=== PATIENT | female | born 1965 | race Caucasian/White ===

== ENCOUNTER 2016-12-08 07:37 | Day surgery (SDC) | payer BC ==
[~2016-12-08] VITALS: Ht 165.1 cm; Wt 62.7 kg
[2016-12-08 07:55] VITALS: BP 104/64; PULSE 70; TEMP 97.7
[2016-12-08] MEDS ORDERED: LYRICA 25MG CAP25 MG PO (08:02)
[2016-12-08] MEDS ORDERED: PROBIOTIC FORMU1 CAP PO (08:02)
[2016-12-08] MEDS ORDERED: ZOLOFT 25MG25 MG PO (08:03)
[2016-12-08] MEDS ORDERED: PRILOSEC10 MG PO (08:04)
[2016-12-08] MEDS ORDERED: ATIVAN 1MG T1 MG/TAB PO (08:04)
[2016-12-08] MEDS ORDERED: ADVIL200 MG PO (08:05)
[2016-12-08 09:00] VITALS: BP 98/53; PULSE 70; TEMP 97.7
[2016-12-08 09:15] VITALS: BP 116/63; PULSE 69
[2016-12-08 09:30] VITALS: BP 111/65; PULSE 69
== END 2016-12-08 09:40 | disposition home or self-care (01) ==
LOC: SDCO 07:37
DX: K29.30 Chronic superficial gastritis without bleeding (principal); K29.60 Other gastritis without bleeding
CPT/HCPCS: OP; J2250; J3010; J7030

== ENCOUNTER → 2018-01-12 | Outpatient (CLI) | payer BC ==
[~2018-01-12] MED LIST: ADVIL200 MG PO; ATIVAN 1MG T1 MG/TAB PO; LYRICA 25MG CAP25 MG PO; PRILOSEC10 MG PO; PROBIOTIC FORMU1 CAP PO; ZOLOFT 25MG25 MG PO
[2018-01-12 08:23] LABS: HEMATOCRIT 42.6 % (37.0-47.0); HEMOGLOBIN 14.4 g/dl (12.5-16.0); MEAN CELL VOLUME 90 fl (80.0-100.0); MEAN CORPUSCULAR HEMOGLOBIN 30 pg (27.0-31.0); MEAN CORPUSCULAR HGB CONC 34 g/dl (33.0-37.0); MEAN PLATELET VOLUME 9.3 fl (7.4-10.4); PLATELET COUNT 258 K/mm3 (130-400); RED BLOOD COUNT 4.76 M/mm3 (4.10-5.30); REDCELL DISTRIBUTION WIDTH-CV 11.9 % (11.5-14.5)
[2018-01-12 08:35] LABS: ALBUMIN 3.9 gm/dL (3.5-5.0); BILIRUBIN,TOTAL 0.4 mg/dL (0.0-1.0); CALCIUM 8.6 mg/dL (8.4-10.2); CREATININE, serum 0.63 mg/dL (0.52-1.25); TOTAL PROTEIN 6.3 gm/dL (6.4-8.2)
== END ==
LOC: COL.RAD 07:26
PROVIDERS: Physician Assistant
DX: K76.0 Fatty (change of) liver, not elsewhere classified (principal); R10.11 Right upper quadrant pain; R19.7 Diarrhea, unspecified

== ENCOUNTER → 2018-01-29 | Outpatient (CLI) | payer BC | LOC: COL.RAD 05:51 | DX: R10.10 Upper abdominal pain, unspecified (principal) | CPT/HCPCS: A9537; J2805 ==

== ENCOUNTER → 2019-04-13 | Outpatient (CLI) | payer OTHER | LOC: MC.RAD 14:23 | DX: Z12.31 Encounter for screening mammogram for malignant neoplasm of breast (principal); N63.11 Unspecified lump in the right breast, upper outer quadrant; Z98.890 Other specified postprocedural states ==

== ENCOUNTER 2019-08-30 07:33 | Day surgery (SDC) | payer OTHER ==
[2019-08-30] VITALS (7 sets, daily range): BP systolic 98–142; BP diastolic 42–88; PULSE 84–95; TEMP 98–98.5
[~2019-08-30] VITALS: Ht 160 cm; Wt 63.6 kg
--- NOTE | 2019-08-30 09:00 | NUR ---
Resting on cart is tearful. States that she has been fighting with her boyfriend. Allowed patient to talk. Does not want boyfriend in the room right now. He has left to get breakfast and has returned.
--- NOTE | 2019-08-30 09:40 | NUR ---
Patient more relaxed and calmer and wishes to have boyfriend in the room now.
--- NOTE | 2019-08-30 10:15 | NUR ---
Patient is requesting something for anxiety and order obtained for Valium 5mg po and given.
[2019-08-30] MEDS ORDERED: COLACE 100100 MG/CAP PO (13:16)
[2019-08-30] MEDS ORDERED: MOTRIN 600600 MG/TAB PO (13:17)
[2019-08-30] MEDS ORDERED: NORCO 325 MG-51 TAB PO (13:17)
[2019-08-30] MEDS ORDERED: Work release (13:21)
--- NOTE | 2019-08-30 13:28 | NUR ---
Patient returns to room 2 per cart and is awake and alert. Incisions x4 on abdomen without bleeding. [place] set dressing dry. Sats 93% on 1L per nasal cannula. Temp 98.5. IV fluids infusing and denies pain or nausea. Siderails up x2 and call light in reach. Friend in room.
--- NOTE | 2019-08-30 13:43 | NUR ---
Sipping on Coke. Denies pain or nausea.
--- NOTE | 2019-08-30 13:58 | NUR ---
Resting and is sipping on Coke.
--- NOTE | 2019-08-30 14:13 | NUR ---
Eating muffin and sipping on water.
--- NOTE | 2019-08-30 14:28 | NUR ---
Tolerating muffin and Coke. Talks with friend.
--- NOTE | 2019-08-30 14:40 | NUR ---
Up to the bathroom and is able to void and returns to room. IV discontinued and allowed patient to dress.
--- NOTE | 2019-08-30 14:52 | NUR ---
Patient given dismissal instructions and voices understanding of these. Provided scripts for [place] and Motrin. Also provided work release. Reinforced need to eat low fat diet for one week.
--- NOTE | 2019-08-30 14:55 | NUR ---
Patient dismissed to home per private vehicle driven by friend and taken to the front door per wheelchair and assited into car by RN with instructions in hand.
== END 2019-08-30 14:55 | disposition home or self-care (01) ==
LOC: SDCO 07:33
DX: K80.10 Calculus of gallbladder with chronic cholecystitis without obstruction (principal); I10 Essential (primary) hypertension; K21.9 Gastro-esophageal reflux disease without esophagitis; E78.00 Pure hypercholesterolemia, unspecified; Z80.0 Family history of malignant neoplasm of digestive organs; Z82.49 Family history of ischemic heart disease and other diseases of the circulatory system; Z87.891 Personal history of nicotine dependence; F41.9 Anxiety disorder, unspecified; F32.9 Major depressive disorder, single episode, unspecified; Z86.010 Personal history of colon polyps; Z90.710 Acquired absence of both cervix and uterus; Z79.899 Other long term (current) drug therapy
CPT/HCPCS: J0690; J1885; J2250; J2405; J2704; J3010; J7120

== ENCOUNTER → 2022-02-18 | Outpatient (CLI) | payer BC ==
[~2022-02-18] MED LIST changes: +BUSPAR5 MG PO; +COLACE 100100 MG/CAP PO; +KLONOPIN 0.5MG0.5 MG PO; +MOTRIN 600600 MG/TAB PO; +NORCO 325 MG-51 TAB PO; +PRINIVIL10 MG PO; +TYLENOL 500MG500 MG PO; +WELLBUTRIN XL300 M1 PO; +Work release
== END ==
LOC: MC.RAD 16:21
DX: Z12.31 Encounter for screening mammogram for malignant neoplasm of breast (principal); N63.10 Unspecified lump in the right breast, unspecified quadrant

== ENCOUNTER → 2022-02-20 | Outpatient (CLI) | payer BC | LOC: MC.RAD 10:00 | DX: N63.10 Unspecified lump in the right breast, unspecified quadrant (principal); N64.89 Other specified disorders of breast ==

== ENCOUNTER → 2022-02-26 | Outpatient (CLI) | payer OTHER | LOC: MC.RAD 10:00 | DX: N63.11 Unspecified lump in the right breast, upper outer quadrant (principal) ==

== ENCOUNTER → 2022-03-10 | Outpatient (CLI) | payer SELFPAY | LOC: MC.RAD 14:00 | DX: C50.411 Malignant neoplasm of upper-outer quadrant of right female breast (principal) | CPT/HCPCS: A9520; C1769 ==

== ENCOUNTER 2022-03-11 07:07 | Day surgery (SDC) | payer SELFPAY ==
[~2022-03-11] VITALS: Ht 160 cm; Wt 54.6 kg
[~2022-03-11 07:07] MED LIST changes: -BUSPAR5 MG PO; -KLONOPIN 0.5MG0.5 MG PO; -PRINIVIL10 MG PO; -TYLENOL 500MG500 MG PO; -WELLBUTRIN XL300 M1 PO
[2022-03-11 08:16] VITALS: BP 136/83; PULSE 77; TEMP 97.5
[2022-03-11] MEDS ORDERED: KLONOPIN 0.5MG0.5 MG PO (08:52)
[2022-03-11] MEDS ORDERED: PRINIVIL10 MG PO (08:55)
[2022-03-11] MEDS ORDERED: WELLBUTRIN XL300 M1 PO (08:58)
[2022-03-11] MEDS ORDERED: TYLENOL 500MG500 MG PO (08:59)
[2022-03-11] MEDS ORDERED: BUSPAR5 MG PO (08:59)
[2022-03-11] MEDS ORDERED: NORCO 325 MG-51 TAB PO (11:24)
[2022-03-11 12:07] VITALS: BP 134/71; PULSE 93; TEMP 97.5
--- NOTE | 2022-03-11 12:07 | NUR ---
The patient arrived back to [address] from the recovery room at this time. The patient appears alert and oriented and reports minimal pain at her incision site. The patient has several family members present at her bedside. The patient agrees to try some orange juice but denies wanting anything to eat. Post operative vital signs were started at this time. Call light is within reach. The patient denies any further needs at this time.
[2022-03-11 12:22] VITALS: BP 134/72; PULSE 95
--- NOTE | 2022-03-11 12:22 | NUR ---
The patient appears to be tolerating the drink well and denies wanting anything else to eat or drink. Vital signs appear stable. Call light remains within reach. Family at bedside.
[2022-03-11 12:37] VITALS: BP 134/72; PULSE 91
--- NOTE | 2022-03-11 12:37 | NUR ---
The patient ambulated to the bathroom with the stand by assitance of one nurse and appeared to tolerate the activity well. The nurse instructed the patient that if she is able to void that she can get dressed and notify the staff when she is ready to review her discharge paperwork.
--- NOTE | 2022-03-11 12:45 | NUR ---
Discharge instructions were reviewed with the patient and her family at this time. The patient's IV to her left hand was removed and a pressure dressing was applied to the site. The patient is dressed and ready to be escorted out.
[2022-03-11 12:50] VITALS: TEMP 97.2
--- NOTE | 2022-03-11 12:54 | NUR ---
The patient was escorted out via wheelchair to a private vehicle by CRISTA Cedillo. The patient's belongings and discharge paperwork were sent with her. The patient's family is present to drive her home.
[2022-03-11 14:15] VITALS: BP 134/71; PULSE 86
== END 2022-03-11 12:54 | disposition home or self-care (01) ==
LOC: SDCO 07:07
DX: C50.411 Malignant neoplasm of upper-outer quadrant of right female breast (principal); Z17.0 Estrogen receptor positive status [ER+]; Z80.0 Family history of malignant neoplasm of digestive organs; Z87.891 Personal history of nicotine dependence
CPT/HCPCS: A4648; J0690; J1100; J2250; J2370; J2405; J2704; J2795; J3010; J7120

== ENCOUNTER → 2022-04-08 | Outpatient (CLI) | payer SELFPAY ==
[~2022-04-08] MED LIST changes: +BUSPAR5 MG PO; +CALCIUM-MAGNES1 EAC1 PO; +KLONOPIN 0.5MG0.5 MG PO; +MASON NATURAL2000 IU PO; +PRINIVIL10 MG PO; +TYLENOL 500MG500 MG PO; +VITAMIN B COMPL1 SGL PO; +VITAMINC1000TA; +WELLBUTRIN XL300 M1 PO
== END ==
LOC: COL.VAS 13:28
DX: Z51.11 Encounter for antineoplastic chemotherapy (principal); C50.411 Malignant neoplasm of upper-outer quadrant of right female breast

== ENCOUNTER 2022-04-10 07:00 | Day surgery (SDC) | payer SELFPAY ==
[~2022-04-10] VITALS: Ht 162.6 cm; Wt 54.1 kg
[~2022-04-10 07:00] MED LIST changes: -CALCIUM-MAGNES1 EAC1 PO; -MASON NATURAL2000 IU PO; -VITAMIN B COMPL1 SGL PO; -VITAMINC1000TA
[2022-04-10] MEDS ORDERED: CALCIUM-MAGNES1 EAC1 PO (07:41)
[2022-04-10] MEDS ORDERED: MASON NATURAL2000 IU PO (07:41)
[2022-04-10] MEDS ORDERED: VITAMINC1000TA (07:42)
[2022-04-10] MEDS ORDERED: VITAMIN B COMPL1 SGL PO (07:42)
[2022-04-10 08:40] VITALS: BP 109/41; PULSE 71; TEMP 97.3
--- NOTE | 2022-04-10 10:05 | NUR ---
PT TO [facility] PER CART FROM OR. RECEIVED REPORT. VS OBTAINED. PT DENIES ANY NEEDS AT THIS TIME. PT IS RESTING. WILL CONTINUE TO MONITOR.
[2022-04-10 10:20] VITALS: BP 92/53; PULSE 71; TEMP 97.5
--- NOTE | 2022-04-10 10:20 | NUR ---
PT CONTINUES TO REST AND DENIES ANY NEEDS.
[2022-04-10 10:35] VITALS: BP 99/54; PULSE 66
[2022-04-10 10:50] VITALS: BP 105/61; PULSE 62
--- NOTE | 2022-04-10 10:50 | NUR ---
PT DENIES ANY NEEDS. TOLERTAING WATER WITHOUT DIFFICULTY.
[2022-04-10 11:05] VITALS: BP 111/62; PULSE 58
--- NOTE | 2022-04-10 11:05 | NUR ---
PT TOLERATING OJ. PT STATES SHE IS DOING WELL. DENIES ANY OTHER NEEDS/
--- NOTE | 2022-04-10 11:20 | NUR ---
PT C/O DISCOMFORT WHERE PORT PLACEMENT IS. ACETAMINOPHEN 650MG GIVEN AT THIS TIME. JELLO AND OJ BEING TOLERATED.
--- NOTE | 2022-04-10 11:50 | NUR ---
IV DC'D AT THIS TIME. PT TOLERATING WELL.
--- NOTE | 2022-04-10 12:05 | NUR ---
DISCHARGE EDUCATION COMPLETED WITH PT AND HER FRIEND. VERBALIZED UNDERSTANDING OF HOME AND FOLLOW UP CARE. ALL QUESTIONS ANSWERED. DISCHARGE PAPERWORK GIVEN TO PT.
--- NOTE | 2022-04-10 12:20 | NUR ---
PT OFF UNIT PER WHEELCHAIR. PT DISCHARGED TO HOME WITH FRIEND PER PERSONAL VEHICLE.
== END 2022-04-10 12:20 | disposition home or self-care (01) ==
LOC: SDCO 07:00
DX: C50.411 Malignant neoplasm of upper-outer quadrant of right female breast (principal); C77.3 Secondary and unspecified malignant neoplasm of axilla and upper limb lymph nodes; Z87.891 Personal history of nicotine dependence
CPT/HCPCS: C1788; J0690; J1644; J2704; J3010; J7120

== ENCOUNTER → 2022-06-16 | Outpatient (CLI) | payer OTHER, MEDICAID ==
[~2022-06-16] MED LIST changes: +CALCIUM-MAGNES1 EAC1 PO; +MASON NATURAL2000 IU PO; +VITAMIN B COMPL1 SGL PO; +VITAMINC1000TA
== END ==
LOC: COL.RAD 10:04
DX: Z02.71 Encounter for disability determination (principal); M25.532 Pain in left wrist; M25.561 Pain in right knee; C79.81 Secondary malignant neoplasm of breast

== ENCOUNTER → 2023-02-23 | Outpatient (CLI) | payer MEDICAID | LOC: MC.RAD 08:34 | DX: C50.411 Malignant neoplasm of upper-outer quadrant of right female breast (principal); C77.3 Secondary and unspecified malignant neoplasm of axilla and upper limb lymph nodes; Z17.0 Estrogen receptor positive status [ER+]; Z80.3 Family history of malignant neoplasm of breast ==

== ENCOUNTER → 2024-06-23 | Outpatient (CLI) | payer MEDICARE, MEDICAID | LOC: MC.RAD 10:48 | DX: C50.411 Malignant neoplasm of upper-outer quadrant of right female breast (principal) ==